=== PATIENT | female | born 1970 | race Caucasian/White ===

== ENCOUNTER → 2019-09-15 06:05 | Outpatient (CLI) | payer SELFPAY ==
--- NOTE | 2019-09-15 09:26 | STRESSREP ---
Stress Test Report Exercise stress test. 48-year-old lady with a history of chest pain. Stress protocol: Resting EKG demonstrates normal sinus rhythm with a rate of 52 bpm normal intervals are noted resting blood pressures 130/90 mmHg. Patient exercised according to the regular Gerard protocol for total duration of 9 minutes. The maximum heart rate attained was 133 bpm which was 77% of maximum predicted heart rate the maximum workload was 10.1 metabolic equivalents. The patient maintained sinus rhythm throughout the recording. She however developed a rate dependent bundle branch block. There were no ST or T wave changes noted outside of the bundle branch block noted to suggest ischemia. The resting blood pressures 130/90 with a peak blood pressure 190/84 mmHg. No clinical angina was noted test was terminated due to attainment of target heart rate. Myocardial perfusion protocol. 11.1 mCi of technetium 99m sestamibi was injected at rest. Patient exercised according to regular Gerard protocol for 9 minutes at peak exercise 35.0 mCi of technetium 99m sestamibi was injected stress images were obtained stress and rest images were reconstructed in comparing the short axis vertical long horizontal long axis. Gated images were also obtained per Perfusion SPECT analysis: Review of the stress images demonstrate normal uptake of tracer noted in all areas of the myocardium. The resting images similarly demonstrate normal uptake of tracer noted in all areas of the myocardium. No areas of reversibility are noted suggest ischemia no previous infarct is noted. Gated SPECT analysis: The gated ejection fraction is noted to be 67%. Conclusion: Normal exercise myocardial perfusion stress test at a high workload of 9 minutes. Preserved ejection fraction. Rate dependent bundle branch block noted.
== END ==
PROVIDERS: Family Provider Nurse Practitioner Family; PCP Nurse Practitioner Family
DX: I25.10 Atherosclerotic heart disease of native coronary artery without angina pectoris (principal); I10 Essential (primary) hypertension; Z72.0 Tobacco use; Z95.5 Presence of coronary angioplasty implant and graft
CPT/HCPCS: 78452; 93017; A9500; A4216